=== PATIENT | male | born 1950 | race Caucasian/White ===

== ENCOUNTER 2018-12-09 13:59 | Emergency (ER) | payer OTHER, MEDICAID ==
[~2018-12-09] VITALS: Ht 175.3 cm; Wt 83.0 kg
[~2018-12-09 13:59] MED LIST: CIPRO500 MG PO
[2018-12-09 14:07] VITALS: Ht 175.3 cm; Wt 83.0 kg
[2018-12-09 16:14] VITALS: BP 184/96
== END 2018-12-09 16:14 | disposition home or self-care (01) ==
LOC: ED 13:59
DX: S89.91XA Unspecified injury of right lower leg, initial encounter (principal); L97.809 Non-pressure chronic ulcer of other part of unspecified lower leg with unspecified severity; E11.9 Type 2 diabetes mellitus without complications; Z88.2 Allergy status to sulfonamides; Z88.0 Allergy status to penicillin; V22.4XXA Motorcycle driver injured in collision with two- or three-wheeled motor vehicle in traffic accident, initial encounter; Y93.I9 Activity, other involving external motion; Y92.413 State road as the place of occurrence of the external cause; Y99.8 Other external cause status
CPT/HCPCS: 82962

== ENCOUNTER 2019-09-15 13:53 | Inpatient (IN) | payer OTHER ==
[~2019-09-15] VITALS: Ht 172.7 cm; Wt 78.0 kg
[2019-09-15 14:42] LABS: BASOPHIL % 0.2 % (0-2)
[2019-09-15 14:43] LABS: PLATELET COUNT 86 x10^3mcL (130-400); RED CELL DISTRIBUTION WIDTH 15.3 % (11.5-14.5)
[2019-09-15 14:46] LABS: CALCIUM 8.5 mg/dL (8.5-10.1); CARBON DIOXIDE 28.3 mmol/L (21-32); CREATININE SERUM 1.8 mg/dL (0.7-1.3); POTASSIUM SERUM 4.4 mmol/L (3.5-5.1)
[2019-09-15 14:51] LABS: ALBUMIN 3.4 g/dL (3.4-5.0); BILIRUBIN TOTAL 0.9 mg/dL (0.20-1.00); TOTAL PROTEIN, SERUM 7.1 g/dL (6.4-8.2)
--- NOTE | 2019-09-15 14:56 | NUR ---
PT COMES TO ER FROM HOME FOR COUGH/CONGESTION AND INTERMITTENT FEVERS FOR THE LAST SEVERAL DAYS, CAREGIVER STATES HE'S ALSO LOST HIS APPETITE RECENTLY. PT IN GOOD SPIRITS, STATES "IM JUST OLD AND EVERYTHING HURTS" DENIES ANY ACUTE TRAUMA. RT FOOT BRACE NOTED, STATES ITS BEEN THERE FOR A WHILE FOR AN OLD INJURY. RESP EVEN AND UNLABORED, ON RA @98%, ABD ROUND/SOFT, NT TO PALPATION, DENIES N/V/D. DENIES ANY CP. PT HOT TO TOUCH, WILL CHECK TEMP. DR LASSITER AT BEDSIDE FOR EXAM.
[2019-09-15 16:47] LABS: UA SPECIFIC GRAVITY >=1.030 (1.005-1.035); microscopic required? YES; urine erythrocyte 2+ (NEGATIVE)
--- NOTE | 2019-09-15 16:59 | NUR ---
DR LASSITER IN ROOM TO RE-EXAM, PER PT, STATES HE CONTNUES TO BE DIZZY AND WANTS TO STAY IN THE HOSPITAL. DENIES NAY SOB OR CP. VSS. , AFEBRILE AT THIS TIME.
--- NOTE | 2019-09-15 17:10 | NUR ---
PT GIVEN DINNER TRAY, TOLERATING WELL.
[2019-09-15] MEDS ORDERED: SIMVASTATIN10 M1 PO (17:20)
[2019-09-15] MEDS ORDERED: METFORMIN HYDR500 M1 PO (17:20)
--- NOTE | 2019-09-15 18:08 | NUR ---
PT FINISHED DINNER 75%, SOB NOTICED WITH EXERTION, CONGESTED, ON RA @88%, PLACED ON 02- VIA NC. DR CRONIN INFORMED.
--- NOTE | 2019-09-15 19:05 | NUR ---
REPORT RECEIVE [facility] RN AGENCY. ALL QUESTIONS AND CONCERNS ADDRESSED AT THIS TIME
--- NOTE | 2019-09-15 20:54 | NUR ---
REPORT GIVEN TO MARISSA MO. ALL QUESTIONS AND CONCERNS ADDRESSED AT THIS TIME
[2019-09-15 22:12] VITALS: BP 148/51
--- NOTE | 2019-09-15 22:34 | NUR ---
RECEIVED PT FROM ER, PT IS A/O X3, FORGETFUL, AND MILD CONFUSED. LUNG SOUND DIM RACHEL, DENY ANY SOB, PO2 100% IN ROOM AIR, PT IS ON TELE 15, SR WITH PAC, DENY ANY CHEST PAIN OR DISCOMFORT, BOWEL SOUND PRESENT ALL 4 QUADRANTS, NO DISTENTION, NO TENDER, RIGHT FOOT AMPUTATION WITH PROSTHESIS, IV LEFT FA, NO LEAKING, NO INFILTRATINO. ALL ADLS ASSIST, ALL NEED MET, CALL LIGHT IN REACH, WILL CONTINUE TO MONITOR.
[2019-09-15 23:20] VITALS: BP 148/51
[2019-09-16] VITALS (9 sets, daily range): BP systolic 95–146; BP diastolic 50–66; Ht 172.7 cm; Wt 78.0 kg
--- NOTE | 2019-09-16 01:05 | NUR ---
CARD GRADER SHOWS AFIB WITH HR 130S. PT EYES CLOSED, AND AWAKEN. PT DENIES ANY CHEST PAIN OR SOB. 0N 02 AT 2LN AT 89% AND INCREASED 02 AT 4LNC, [address] KERN PAGED AT THIS TIME. BP 121/54 (80). RR 20/MIN.
--- NOTE | 2019-09-16 01:40 | NUR ---
PLACED PT ON 10L OXYMIZER. UNRELIABLE SPO2 DUE TO POOR PERFUSION. RN UNAWARE.
--- NOTE | 2019-09-16 02:13 | NUR ---
0200 DR. PATRICIA CALL BACK, ORDER CARDIZAM PRN ORDER. INFORM THE PT IS DESAT ON ROOM AIR, PUT PT ON 4L ONLY 92% AND PT BECOME MORE CONFUSED THAN BEFORE. MADE AWARE.
--- NOTE | 2019-09-16 02:15 | NUR ---
PT PLACED ON 100% NRB PER RN'S REQUEST. PT TOLERATING MASK.
--- NOTE | 2019-09-16 02:18 | NUR ---
PT CONTINUE TO DESAT, RT AT BEDSIDE. PT IS ON 10L/MIN O2 VIA OXYMIZOR PO2 AROUND 80% AND PT VERY CONGESTED AT THIS MOMENT, PAGE DR. PATRICIA, WAITING FOR RESPONSIVE.
--- NOTE | 2019-09-16 02:23 | NUR ---
STOP THE IV FLUID AND CARDIZAM IVP WAS GIVEN BUT PT HR STILL AROUND 150, WAITING FOR DR. PATRICIA CALL BACK.
--- NOTE | 2019-09-16 02:28 | NUR ---
PT IS ON NON REBREATH MASK, 15L/MIN. PO2 92%, LUNG SOUND STILL CONGESTED. WAITING FOR DR. PATRICIA CALL BACK.
--- NOTE | 2019-09-16 02:59 | NUR ---
DR. KERN CALLED BACK. ORDER TO PUT PT ON BIPAP AND STATE ABG, CXR, ALSO DC THE IV INFUSION FLUID. ORDER LASIX IVP ONE TIME DOSE. INFORM THE PT BUN AND CREATINE IS HIGH, BUT STILL WANT TO PUSH THE LASIX, INFORM THE DR. PER FLOOR POLICY ONLY CAN GIVE CARDIZAM TWICE IN 24 HOURS. PHARMACY SUGGEST TO SWITCH TO METAPROLOL IVP. DR. BENNETT IS PAIGE TO SWITCH TO METAPROLOL AND MAY GIVE CARDIZAM ONE MORE DOSE IN THE BETWEEN. ORDER RECEIVED AND CARRIED OUT.
--- NOTE | 2019-09-16 03:49 | NUR ---
PT IS ON BIPAP, O2 SAT 100% AT THIS MOMENT. METAPROLOL AND LASIX IVP WAS GIVEN. HR FROM 150 - 160 TO 100 -120. CONTINUE TO MONITOR THE PT.
--- NOTE | 2019-09-16 05:11 | NUR ---
PT IS AWAKE, CONTINUE ON BIPAP, NO S/S OF RESPIRATORY DISTRESS AT THIS MOMENT. DENY ANY PAIN OR DISCOMFORT. IV AT LEFT FA, NO LEAKING, NO INFILTRATION. PT IS CONSTANTLY TRY TO REMOVE THE MAST, CLOSE MONITOR THE PT. INSTRUCT THE PT KEEP MASK ON. HR IS CURRENTLY UNDER 120. DENY ANY CHEST PAIN OR DISCOMFORT. ALL ADLS ASSIST, ALL NEED MET, CALL LIGHT IN REACH, WILL CONTINUE TO MONITOR.
[2019-09-16 06:45] LABS: BASOPHIL % 0.1 % (0-2)
[2019-09-16 07:30] LABS: PLATELET COUNT 81 x10^3mcL (130-400); RED CELL DISTRIBUTION WIDTH 15.3 % (11.5-14.5)
--- NOTE | 2019-09-16 07:30 | NUR ---
PT'S WT=125'S-160'S. PER REPORT CAN GIVE 1 MORE DOSE OF CARDIZEM 10 MG IVP.WILL GIVE CARDIZEM.
[2019-09-16 07:54] LABS: CALCIUM 7.9 mg/dL (8.5-10.1); CARBON DIOXIDE 26.6 mmol/L (21-32); CREATININE SERUM 1.5 mg/dL (0.7-1.3); POTASSIUM SERUM 4.1 mmol/L (3.5-5.1)
--- NOTE | 2019-09-16 08:14 | NUR ---
AT 0700 - RECEIVED PT FROM NIGHT RN RESTING IN BED. PT ALERT AND ORIENTED. PT ON BIPAP WITH NO APPARENT DISTRESS. DENIES PAIN/DISCOMFORT. AT 0730 - RT REMOVED BIPAP FOR PT TO EAT BREAKFAST. RESP U/E. DENIES SOB. LUNG SOUNDS DIMINISHED AT BASES. AT 0801 - IV CARDIZEM WAS GIVEN PER EMAR. VS TAKEN 5 MINS AFTER IV CARDIZEM BP 111/58(76), HR 90'S. DENIES CHEST PAIN/PRESSURE. NO SOB NOTED. BED IN LOWEST POSITION. CALL LIGHT WITHIN REACH.
--- NOTE | 2019-09-16 10:07 | NUR ---
HR=96 ON AFIB.SPO2=97 % ON 8L OXIMIZER.
--- NOTE | 2019-09-16 15:00 | NUR ---
I HAVE REVIEWED THE DATA COLLECTION BY CHE[facility] CARTWRIGHT (NAME):MAYA WEST RN ENTERED ON (DATE/TIME):09/16/19 AT 1500 I CONCUR WITH THE DATA AND ANY EXCEPTIONS OR COMMENTS ARE LISTED BELOW:
--- NOTE | 2019-09-16 18:54 | NUR ---
PT RESTING IN BED. AWAKE AND ALERT. NO APPARENT DISTRESS NOTED. NO SIGNIFICANT CHANGES. IV SITE SL. BED IN LOWEST POSITION, CALL LIGHT WITHIN REACH. WILL ENDORSE CARE TO NEXT RN.
--- NOTE | 2019-09-16 19:30 | NUR ---
RECIEVED PT RESTING IN BED WITH NO ACUTE DISTRESS NOTED AT THIS TIME, ASSESSMENT PERFORMED AT THIS TIME, PT IS A/OX2 TO PERSON AND PLACE, PT IS CONFUSION, PT DENIES PAIN OR SOB AT THIS TIMEM TELE 15 AFIB, IV TO THE LFA, SAFETY PRECAUTIONS IN PLACE, WILL CONTINUE TO MONITOR
--- NOTE | 2019-09-16 20:15 | NUR ---
MT CALLED AND INFORMED THAT PT HR WAS JUMPING INTO THE HIGH 120S AND LOW 130S, RECHECKED BP AND HR, BP 111/65 AND HR 131, ADMINISTERED SCHEDULED LOPRESSOR
--- NOTE | 2019-09-16 20:30 | NUR ---
MT CALLED AND INFORMED THAT HR HAS JUMPED INTO 160S AND IS SVT, PT ASYMPTOMATIC, ADMINISTERED IVP LOPRESSOR, BEFORE AND AFTER STIP IN CHART.
--- NOTE | 2019-09-16 20:45 | NUR ---
ASKED IF PATIENT CAN STARTS THE XARELTO W/ ORDERED FOR TOMORROW. HE STATED TO STARTS TODAY.
--- NOTE | 2019-09-16 20:45 | NUR ---
CALLED TO [facility] AND IS THE CHUCK TENDER. HE CALLED BACK AND MADE AWARE THAT THE PATIENT MONTIOR SHOWS SVT W/ HR OF 165 AND PATIENT JUST LYING ON BED. TOLD THAT PATIENT RECEIVED 2DOSES OF CARDIAZEM. PATIENT JUST RECEIVED IV OF METROPOLOL PO AND IV. HE STATED TO CALL WATER RESOURCE ENGINEERING SPECIALIST.
--- NOTE | 2019-09-16 20:50 | NUR ---
RT CAME UP TO TAKE EKG OF PT
--- NOTE | 2019-09-16 20:59 | NUR ---
PT CONVERTED BACK TO AFIB WITH A RATE OF 101
--- NOTE | 2019-09-16 21:20 | NUR ---
PT BP ELEVATED AT 167/68, ADMINISTERED HYDRALAZINE PRN PER ORDER, WILL CONTINUE TO MONITOR
--- NOTE | 2019-09-16 22:30 | NUR ---
RECHECKED VITALS, BP 123/62, HR 101, O2 SAT 98, RR 20, PT STABLE AND CALM
--- NOTE | 2019-09-17 00:15 | NUR ---
PT RESTING IN BED WITH NO ACUTE DISTRESS NOTED AT THIS TIME, RESPIRATIONS EVEN AND UNLABORED, ALL PT NEEDS ATTENDED TO AT THIS TIME, SAFETY PRECAUTIONS IN PLACE, WILL CONTINUE TO MONITOR
--- NOTE | 2019-09-17 02:58 | NUR ---
PT O2 SATURATION DROPPED TO MID 80S PT SITTING ON SIDE OF BED, GOT PT BACK INTO BED AND ENCOURAGED DEEP BREATHING, O2 SATURATIONS IMPROVED TO 94%
[2019-09-17 04:29] VITALS: BP 133/59
--- NOTE | 2019-09-17 05:09 | NUR ---
PT HR STARTING TO CLIMB AND SUSTAIN IN THE 120S INFORMED CHARGE NURSE TASNEEM, GAVE LOPRESSOR 0900 DOSE EARLY.
--- NOTE | 2019-09-17 06:00 | NUR ---
HR CONTROLED SINCE LOPRESSOR ADMINISTRATION BETWEEN 90-110
--- NOTE | 2019-09-17 06:13 | NUR ---
PT RESTED THROUGH THE NIGHT AFTER EPISODE OF SVT, PT HAS REMAINED STABLE AND RATE HAS REMAINED CONTROLED UNDER 130. PT IS STABLE AT THIS TIME, ALL NEEDS ATTENDED TO, SAFETY PRECAUTIONS IN PLACE, WILL COTNINUE TO MONITOR AND ENDORSE CARE.
[2019-09-17 06:45] LABS: BASOPHIL % 0.3 % (0-2)
[2019-09-17 07:13] VITALS: BP 127/63
[2019-09-17 07:24] LABS: PLATELET COUNT 99 x10^3mcL (130-400); RED CELL DISTRIBUTION WIDTH 15.3 % (11.5-14.5)
--- NOTE | 2019-09-17 07:25 | NUR ---
PT LYING IN BED A/A. BREATHING EQUAL/UNLABORED ON 8L VIA OXYMIZER. NO ACUTE PAIN/ DISTRESS. IV SITE WNL. BED IN LOW POSITION, CALL LIGHT IN REACH, SAFETY PRECAUTIONS IN PLACE, WILL CONTINUE TO MONITOR
--- NOTE | 2019-09-17 10:15 | NUR ---
PT IN AFIB, HR >130 UP TO 180. METOPROLOL 5MG IVP GIVEN. PT WAS ASYMPTOMATIC. WILL CONTINUE TO MONITOR
[2019-09-17 11:37] LABS: CALCIUM 8.1 mg/dL (8.5-10.1); CARBON DIOXIDE 27.2 mmol/L (21-32); CHLORIDE SERUM 102 mmol/L (98-107); CREATININE SERUM 1.2 mg/dL (0.7-1.3); GFR1 > 60 mL/min; GLUCOSE SERUM 178 mg/dL (74-106); MAGNESIUM 1.9 mg/dL (1.8-2.4); POTASSIUM SERUM 3.7 mmol/L (3.5-5.1); SODIUM SERUM 138 mmol/L (136-145)
--- NOTE | 2019-09-17 11:47 | NUR ---
PT LYING IN BED A/A. BREATHING EQUAL/UNLAOBORE ON 2 L/NC. NO ACUTE CHANGES/ DISTRESS. IV SITE WNL. WILL CONTINUE TO MONITOR
[2019-09-17 12:34] VITALS: BP 109/69
--- NOTE | 2019-09-17 13:57 | NUR ---
PT TRANSFERRED TO ICU VIA BED, ACCOMPANIED BY CHEPE NICHOLAS AND CHEPE SHAVER. PT A/A, BREATHING EQUAL/UNLAOBORED ON RA. NO ACUTE PAIN/ DISTRESS. REPORT WAS GIVEN TO CHEPE JACOBSON. ALL BELONGINGS WITH PT.
--- NOTE | 2019-09-17 14:10 | NUR ---
RECEIVED PT ON A GUERNEY FROM [facility], REPORT GIVEN BY CHEPE BILL. PT IS AAOX3-4 WITH EPISODES OF CONFUSION. PERRLA. PUPILS 3 MM. RESP EVEN AND UNLABORED. LUNG SOUNDS DIMINISHED BILATERAL BASES. NO COUGH OR SOB NOTED. ON 02 N/C AT 2LPM. TELE [address] READING AFIB HR 110-126. PT HAS LFA IV CATH N/S LOCKED AT TIME. ABDOMEN SOFT, NONTENDER, NONDISTENDED. PT DENIES NAUSEA, STATED HE LAST VOMITED ON FRIDAY. TOLERATING CCHO DIET. SKIN WARM AND CDI. PERIPHERAL PULSES MODERATELY PALPABLE. NO EDEMA. CAP REFILL < 3 SECS. PT VOID BY URINAL. PT HAS R FOOT AMPUTATED, HEALED WITH R FOOT PROTHESIS AT BESIDE. PT DENIES PAIN AT THIS TIME. PT ORIENTED TO ROOM AND CALL LIGHT.
--- NOTE | 2019-09-17 14:18 | NUR ---
CARDIZEM DRIP 5 MG/HOUR STARTED AT THIS TIME. HR 110-115. WILL CONTINUE TO MONITOR.
--- NOTE | 2019-09-17 14:29 | NUR ---
CARDIZEM 6OMG PO STARTED AT THIS ITMEL. HR 115. PT DENIES C/P AND PRESSURE. WILL CONTINUE TO MONITOR.
--- NOTE | 2019-09-17 14:39 | NUR ---
PT HR HAS DECREASED OT 95-105 AT THIS TIME. WILL CONTINUE TO MONITOR.
--- NOTE | 2019-09-17 14:44 | NUR ---
CARDIZEM IV INCREASED TO 10MG/HOUR AT THIS TIME. HR 105-110
--- NOTE | 2019-09-17 15:34 | NUR ---
PT HR FLUCTUATING BETWEEN 94 AND 103 AT THIS TIME. PT DENIES C/P AND PRESSURE. WILL CONTINUE TO MONITOR.
[2019-09-17 15:48] VITALS: BP 116/50
--- NOTE | 2019-09-17 16:24 | NUR ---
PT HR OF 73. CARDIZEM TITRATED TO 5MG/MIN.
--- NOTE | 2019-09-17 16:46 | NUR ---
HR 72. CARDIZEM TURNED OFF AT THIS TIME.
--- NOTE | 2019-09-17 17:31 | NUR ---
XARELTO PO GIVEN. BLOOD SUGAR 187, 3 UNITS REG INSULIN GIVEN INDICATED BY RISS. PT DENIES PAIN AT THIS TIME. CALL LIGHT WITHIN REACH.
--- NOTE | 2019-09-17 18:43 | NUR ---
PT IS AAOX4. RESP EVEN, SHALLOW AND UNLABORED. O2 N/C AT [address] PT NOTED WITH BILATERALLY UPPER LOBES FINE CRACKLES, DIMINISHED BILATERAL BASE WITH PRODUCTIVE COUGH AND SCANT LIGHT YELLOW SECRETIONS. TELE [address] READING AFIB, HR 93. PT DENIES C/P AND PRESSURE. IV CATH IN PLACE TO LFA WITH CARDIZEM 5MG/HOUR RUNNING. SITE WNL. NO S/S OF INFECTION OR INFITRATION. RECEIVED ORDER FROM DR. PA, D/C REGULAR DIET, CHANGE TO [facility] DIET. ORDER NOTED AND CARRIED OUT. PT MADE AWARE. BED IN LOWEST POSITION. CALL LIGHT WITHIN REACH. FALL PROTOCOL MAINTAINED. DROPLET PRECATIONS IN PLACE. WILL ENDORSE ALL CARE TO NOC RN.
[2019-09-17 20:00] VITALS: BP 119/57
--- NOTE | 2019-09-17 20:00 | NUR ---
PATIENT RECEIVED AWAKE IN BED, RESPIRATION EVEN AND UNLABORED, ON O2 2L PER NASAL CANNULA, ON DROPLET PRECAUTION FOR POSITIVE INFLUENZA A. ONGOING CARDIZEM DRIP AT 5 MG/HR AT THE LEFT FOREARM. DENIES PAIN AT THIS TIME. NO GI DISCOMFORT NOTED. VOIDING FREELY, USES URINAL. RIGHT FOOT AMPUTATED WITH PROSTHESIS AT THE BEDSIDE. WILL CONTINUE TO MONITOR.
[2019-09-18] VITALS (7 sets, daily range): BP systolic 103–147; BP diastolic 52–70
--- NOTE | 2019-09-18 | NUR ---
PATIENT ASLEEP IN BED BUT EASILY AROUSABLE TO NAME CALLING. RESPIRATION EVEN AND UNLABORE, ON O2 2L PER NASAL CANNULA. ONGOING CARDIZEM DRIP AT 5 MG/HR. IV SITE TO LEFT FOREARM INTACT. USED THE BEDSIDE COMMODE INDEPENDENTLY. ASSISTED WITH. SAFETY OBSERVED. WILL CONTINUE TO MONITOR.
--- NOTE | 2019-09-18 04:00 | NUR ---
PATIENT ASLEEP IN BED, RESPIRATION EVEN AND UNLABORED, ON O2 2L PER NASAL CANNULA. ONGOING CARDIZEM DRIP AT 5 MG/HR. DENIES PAIN AT THIS TIME. IV SITE NO SIGN OF INFILTRATION. NO EPISODE OF FALL NOTED. WILL CONTINUE TO MONITOR.
--- NOTE | 2019-09-18 05:30 | NUR ---
PATIENT REFUSED ACCUCHECK. EXPLAINED IMPORTANCE AND NECESSITY OF THE ORDER.
--- NOTE | 2019-09-18 06:15 | NUR ---
PATIENT RESTING IN BED. IRRITABLE, UNCOOPERATIVE AT TIMES. NO DISTRESS NOR DISCOMFORT NOTED. IV SITE TO LEFT FOREARM PATENT AND INTACT. ONGOING CARDIZEM DRIP AT 5 MG/HR. ASSISTED WITH NEEDS. SAFETY OBSERVED. FALL PRECAUTION OBSERVED. WILL CONTINUE TO MONITOR.
--- NOTE | 2019-09-18 07:10 | NUR ---
RECEIVED PT SLEEPING BUT EASILY AROUSABLE. WHEN AWAKE, IRRITABLE. AAOX4. SPEECH CLEAR AND APPROPRIATE FOR AGE. NO FACIAL DROOP NOTED. PERRL. ON 2L NASAL CANNULA. BREATHING E/U. WHEEZES TO BUL, DIM TO BLL. 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 HR = 88. CLICK AUSCULTATED. DENIES CP. MOD PULSES TO BUE AND LLE, ABSENT PEDAL PULSE TO RLE DUE TO R FOOT AMPUTATION. NO EDEMA. SKIN WARM/DRY TO TOUCH, COLOR CONSISTENT WITH ETHNICITY. PIV TO LFA INTACT/SECURED. CARDIZEM GTT INFUSING @ 5MG/HR. ABD IS SOFT, SYMM, ROUNDED, NONTENDER. ACTIVE BOWEL SOUNDS X4. NO BM AT THIS TIME. VOIDS FREELY VIA URINAL. NO CONTRACTURES. SKIN INTACT.
--- NOTE | 2019-09-18 07:10 | NUR ---
RECIEVED REPORT FROM HUMBERTO ALBARADO RN. ALL QUESTIONS ANSWERED/ADDRESSED. ASSUMING CARE AT THIS TIME.
--- NOTE | 2019-09-18 08:11 | NUR ---
HR = 78. CARDIZEM GTT TURNED OFF AT THIS TIME.
--- NOTE | 2019-09-18 09:06 | NUR ---
DR. MCKEON AT BEDSIDE ASSESSING PT. NURSING UPDATES. NO NEW ORDERS AT THIS TIME.
--- NOTE | 2019-09-18 09:22 | NUR ---
LAB AT BEDSIDE FOR CMP AND MAG. PT REFUSING BLOOD DRAW.
--- NOTE | 2019-09-18 13:25 | NUR ---
REPORT GIVEN TO CADEN MO. ALL QUESTIONS ANSWERED/ADDRESSED. PT WILL BE GOING TO ROOM 252-B WITH TELE BOX VIA BED. PT'S PERSONAL BELONGINGS WILL BE TRANSFERRED WITH.
--- NOTE | 2019-09-18 18:35 | NUR ---
PT SITTING UP IN BED. NO ACUTE DISTRESS. AAOX4. RESP EVEN AND UNLABORED ON 2L NC. GIVEN METOPROLOL IV FOR HR FLUCTUATING BETWEEN 130'S - 180'S. PT ASYMPTOMATIC, DENIES CP OR PRESSURE. HR NOW 90'S - 100'S ON SCALLOP CUTTER. IV TO LFA, NO REDNESS OR SWELLING. FALL PRECAUTIONS. VISITOR AT BEDSIDE. BED IN LOW POSITION, CALL LIGHT WITHIN REACH. WILL ENDORSE TO ONCOMING SHIFT.
--- NOTE | 2019-09-19 00:47 | NUR ---
PT;S SITTING ON THE EGDE OF THE BED TALKING ON THE PHONE HR 112 AFIB , DENY CHEST PAIN AT THE MOMENT , PIV INTACT INFUSING WELL ZITHROMAX .CALL LIGHT WITHIN PT'S REACH .
--- NOTE | 2019-09-19 04:29 | NUR ---
PT;S IN BED WITH EYES CLOSED .
--- NOTE | 2019-09-19 04:36 | NUR ---
I HAVE REVIEWED THE DATA COLLECTION BY SHO (NAME):FRANNY BASILIO ENTERED ON (DATE/TIME):09/18/2019 I CONCUR WITH THE DATA AND ANY EXCEPTIONS OR COMMENTS ARE LISTED BELOW:
[2019-09-19 04:53] VITALS: BP 113/41
--- NOTE | 2019-09-19 05:26 | NUR ---
PT'S HR 165 AFIB/RVR METOPROLOL GIVEN IVP ORDERED PRN BY CHARGE NURSE.
--- NOTE | 2019-09-19 06:25 | NUR ---
POST CARDIZEM AND METOPROLOL IV HR WENT DOWN TP 98, PT REMAINEED AFIB , PT REFUSED AM LABS , WILL ENDORSE TO AM NURSE TO F/U WITH
--- NOTE | 2019-09-19 07:05 | NUR ---
RECEIVED [facility] FROM [facility]. PT FOUND RESTING IN BED WITH BOTH EYES CLOSED. EASILY AROUSABLE TO VERBAL STIMULI. AA/OX3, FORGETFUL AT TIMES. NO S/S OF ACUTE DISTRESS. DROPLET PRECAUTIONS IN PLACE. IV WNL TO LFA, PATENT AND FLUSHES WELL. SITE WNL. AFIB ON TELE 3. HR GOES HIGH 116 WHILE RESTING. NO SOB ON 2LNC. RR EVEN/UNLABORED. CHEST EXPANSION SYMMETRICAL. INSTRUCTED TO USE CALL LIGHT TO CALL FOR ASSISTANCE PRN. PT VERBALIZED UNDERSTANDING. BED IN LOW POSITION. CALL LIGHT WITHIN REACH. WILL CONT. TO MONITOR.
[2019-09-19 07:41] VITALS: BP 101/62
--- NOTE | 2019-09-19 08:47 | NUR ---
REC PT FROM [facility] FALK WILL CONTINUE CARE. PT IS SITTING UP IN BED, NO ACUTE RESP DISTRESS IS ABLE FOR FOLLOW COMMANDS AND MAKE NEEDS KNOWN. TELE3 AFIB SHOWING HR RANGING FROM 112-20,S AM METOPROLOL PO GIVEN/ DENIES ANY CP OR PRESSURE. WILL CONTINUE CARE.
[2019-09-19 11:56] VITALS: BP 125/60
--- NOTE | 2019-09-19 14:50 | NUR ---
PT TOLERATED 100% OF LUNCH/ DENIES ANY CP OR PRESSURE WILL CONTINUE TO MONITOR.
[2019-09-19 17:35] VITALS: BP 131/62
--- NOTE | 2019-09-19 19:21 | NUR ---
NO ACUTE CHANGES AT THIS TIME, NO ACUTE RESP DISTRESS OR SOB NOTED. REMAINS ON TELE 3 HR RANGING FROM 80-98 AT THIS TIME /DENIES ANY CP OR PRESSURE. IV TO THE LFA INTACT AND PATENT/ HEPLOCKED/ NO REDNESS OR SWELLING NOTED. CALL LIGHT IN REACH. BED IN LOW POSITION. WILL ENDORSE TO INCOMING RN.
--- NOTE | 2019-09-19 21:09 | NUR ---
PT REFUSED BIPAP. PT REMAINED ON 2L/M VIA NASAL CANNULA TO SLEEP.
--- NOTE | 2019-09-19 22:41 | NUR ---
PT'S IN BED NO ACUTE DISTRESS NOTED , TELE AFIB HR 99 , PT DENY CHEST PAIN , LUNG SOUNDS DIMINISHED PRODUCTIVE COUGH NOTED, NO RESP DISTRESS AT THE MOMENT , HL PATENT FLUSHING WELL , HX OF LEFT BKA WITH PROSTHESIS AT THE BEDSIDE . CALL LGITH WITHIN PT'S REACH .
--- NOTE | 2019-09-19 23:24 | NUR ---
PT'S AWAKE SITTING ON THE BSC URINATING HR AFIB 158, ASYMPTOMATIC DENY CHEST PAIN , WILL CON'T TO MONITIOR PT .
--- NOTE | 2019-09-20 02:39 | NUR ---
PT'S IN BED WITH EYES CLOSED , TELE AFIB HR 89.
--- NOTE | 2019-09-20 03:30 | NUR ---
PT'S HR FROM 112-150 , PT'S IN BED AWAKE ASYMPTOMATIC AT THE MOMENT WILL CON'T TO MONITOR PT CLOSELY.
--- NOTE | 2019-09-20 05:03 | NUR ---
PT'S REFUSING TELE MONITOR,EXPLAINED WHY HE NEEDS TELE MONITOR ON PT STATED "I DON'T WANT IT ON AND I DON'T WANT ANY MEDICATION BECAUSE YOU GUYS ARE FILLING MY BODY WTIH TOXIC " CHARGE NURSE AWARE AND I WILL NOTIFY .
--- NOTE | 2019-09-20 05:19 | NUR ---
PT REFUSED V/S WELL STATED I'M WAITING FOR MY TIME TO GET OUT OF HERE" PT;S AWAKE SITTING ON THE EDGE OF THE BED , NNO ACUTE DISTRESS NOTED.
--- NOTE | 2019-09-20 05:55 | NUR ---
PT REFUSED DILTIAZEM/BLOOD SUGAR CHECK . STATED 'I'M GOING HOME TODAY SO I DON'T NEED IT '
--- NOTE | 2019-09-20 06:27 | NUR ---
DR KERN AWARE THAT PT REFUSED 0600 MEDS , TELE , BLOOD SUGAR CHECK .
--- NOTE | 2019-09-20 06:41 | NUR ---
DR KERN SPOKE TO PT RE:TAKING MEDS . NO RESP DISTRESS NOTED , PT';S SITTING ON THE EDGE OF THE BED GOWN OFF REFUSED TO PUT GOWN ON PER PT HE'S OK .
--- NOTE | 2019-09-20 07:15 | NUR ---
RECIEVED REPORT FROM [facility] NURSE FRANNY. PATIENT CURRENTLY AWAKE ALERT AND ORIENTED. PATIENT STATES THAT HE WANTS TO LEAVE AMA. DR. MCKEON IN ROOM WITH PATIENT. PROVIDING EDUCATION TO PATIENT ON IMPORTANCE OF STAYING TO REACIEVE TREATMENT. PATIENT CURRENTLY STILL INSISTING THAT HE WANTS TO LEAVE AMA. WILL RETRIEVED PAPERWORK FOR PATIENT TO PREPARE FOR AMA LEAVE.
--- NOTE | 2019-09-20 10:34 | NUR ---
PRESCRIPTIONS GIVEN AND EXPLAINED TO PATIENT. IV REMOVED INTACT. EDUCATION PROVIDED REGARDING CONSEQUENCES OF LEAVING THE HOSPITAL AGAINST MEDICAL ADVICE. PATIENT CONTINUES TO INSIST LEAVING THE HOSPITAL AGAINST MEDICAL ADVICE. IV REMOVED INTACT. PATIENT ACCOMPANIED TO THE LOBBY BY SENIOR DATASTAGE DEVELOPER.
== END 2019-09-20 10:45 | disposition left against medical advice (07) | DRG 193 ==
LOC: ED 13:53 → IC 19:29 → DU 19:29 → IC 09-17 14:01 → DU 09-18 13:51
PROVIDERS: Internal Medicine Pulmonary Disease; Student in an Organized Health Care Education/Training Program; ADMIT Internal Medicine
DX: J09.X2 Influenza due to identified novel influenza A virus with other respiratory manifestations (principal); G93.41 Metabolic encephalopathy; J90 Pleural effusion, not elsewhere classified; I48.91 Unspecified atrial fibrillation; R94.31 Abnormal electrocardiogram [ECG] [EKG]; I50.9 Heart failure, unspecified; E86.0 Dehydration; N18.2 Chronic kidney disease, stage 2 (mild); E11.22 Type 2 diabetes mellitus with diabetic chronic kidney disease; Z68.26 Body mass index [BMI] 26.0-26.9, adult
CPT/HCPCS: 36600; 82962; 83880; 87804; G0378; J0456; J1885; J1940; J3490; J7030; J7050; J7613; J7644; Q0092